=== PATIENT | female | born 1950 | race Caucasian/White ===

== ENCOUNTER 2017-10-25 04:18 | Emergency (ER) | payer OTHER, SELFPAY ==
[2017-10-25 04:19] VITALS: BP 156/80; PULSE 79; RESP 18; TEMP 36.9; O2SAT 96; BMI 33.0
--- NOTE | 2017-10-25 04:33 | CT_ITS ---
STUDY: CT ABDOMEN AND PELVIS WITHOUT CONTRAST REASON FOR EXAM: Female, 67 years old. Right flank pain RADIATION DOSAGE (If Supplied By Facility): CTDIvol = ( 11.98 ) mGy, DLP = ( 583.82 ) mGycm TECHNIQUE: Transaxial images were obtained from the dome of the diaphragm to the symphysis pubis without oral contrast, and without intravenous contrast. Sagittal and coronal images were reconstructed. Individualized dose optimization techniques were used for this CT. COMPARISON: None. FINDINGS: The lung bases are clear. The liver is normal. No dilated intrahepatic biliary radicles. There is a 9.7 mm gallstone but no pericholecystic fluid collection. The spleen is normal. The pancreas is normal. Both adrenals are normal. A 4.4 mm left calyceal calculus. No hydronephrosis on either side The stomach is normal. There is no bowel distention, acute appendicitis or diverticulitis. No constricting lesions are seen in large bowel. The abdominal wall is intact with no hernias. There is no ascites or any free intraperitoneal air. No indication of epiploic appendagitis The vascular structures in the retroperitoneum are normal. There is no retrocrural, retroperitoneal or mesenteric adenopathy. Degenerative changes at L4-5 and L5-S1 The urinary bladder is normal.--The uterus is not seen. There is no inguinal or pelvic adenopathy. There is no inguinal hernia. . CT/Abdomen/Pelvis without Cont IMPRESSION: A 9.7 mm gallstone. A 4.4 mm left calyceal calculus. No hydronephrosis on either side. Degenerative changes at L4-5 and L5-S1 Electronically Signed: Romaine Leary, at 6:00 EDT Tel , Service support ,
[2017-10-25 04:43] LABS: Bacteria 0 SEEN /hpf (None Seen); Mucous, Urine 0 SEEN /hpf (<or=2+); Squamous Epithelial Cells - UA 0 SEEN /hpf (5-10); White Blood Cells 0 SEEN /hpf (0-5)
[2017-10-25] MEDS: 0.9% Normal Saline 1,000 ML 1000 ML IV (04:43)
[2017-10-25] MEDS: Ketorolac 30 MG/ML Syringe IV (04:43)
[2017-10-25 04:53] LABS: Absolute Neutrophil Count 2.4 X10^3/uL (2.0-7.7); Basophil# 0.05 X10^3/uL; Eosinophil# 0.24 X10^3/uL; Eosinophils% 4.6 % (0-5); Hematocrit 38.6 % (37-47); Hemoglobin 13.2 g/dl (12.0-15.0); Lymphocyte % 34.7 % (19-41); Mean Corp Hgb Conc 34.2 g/gl (32-36); Mean Corpuscular Hgb 30.2 pg (27.0-32.0); Mean Corpuscular Volume 88.3 fL (81-99); Mean Platelet Vol. 9.2 fl (6.2-12.0); Monocyte# 0.69 X10^3/uL; Monocyte% 13.3 % (0-10); Neutrophil % 46.2 % (47-70); Platelet Count 261 K/mm3 (150-450); RBC Distribution Width CV 12.5 % (11.6-14.6); RBC Distribution Width SD 39.5 fl (35.1-43.9); Red Blood Count 4.37 M/mm3 (4.2-5.4); White Blood Count 5.2 K/mm3 (4.4-11.0)
[2017-10-25 04:55] LABS: POSITIVE COUNT NO; POSITIVE DIFFERENTIAL NO; POSITIVE MORPHOLOGY NO
[2017-10-25 04:56] LABS: Color, Urine Yellow (Yellow); Glucose, Dipstick Normal (Normal); Ketone-Dipstick Negative (Negative); Leukocyte Esterase-Dipstick Negative /ul (Negative); Nitrite-Dipstick Negative (Negative); Occult Blood-Urine 50 /ul (Negative); Protein-Dipstick Negative (Negative); Specific Gravity, Urine 1.015 (1.002-1.030); Urine Bilirubin Dipstick Negative (Negative); Urine Clarity Clear (Clear); Urine Urobilinogen Normal (Normal)
[2017-10-25 05:06] LABS: Red Blood Cells-Urine 0-5 SEEN /hpf (0-5)
[2017-10-25 05:07] LABS: BUN 12 mg/dL (7-18); BUN/Creat Ratio 17.7 RATIO (10-20); Calcium,Total 9.2 mg/dL (8.5-10.1); Chloride 106 mmol/L (98-107); Creatinine, Serum 0.68 mg/dL (0.55-1.02); EST Glomerular Filtration Rate 92 mL/min (>60); Est Glom Filt Rate - Afr Amer 112 mL/min (>60); Estimated Creatinine Clearance 65.23 ml/min; Glucose 107 mg/dL (74-106); Potassium 3.8 mmol/L (3.5-5.1); Sodium Level 143 mmol/L (136-145)
[2017-10-25 05:08] LABS: Anion Gap 7 (5-15)
--- NOTE | 2017-10-25 06:18 | ED.VISSUMM ---
- ER Visit Summary Date of Service: 10/25/17 Chief Complaint: Flank pain History of Present Illness: The patient is a 67 F who presents with left flank pain. It began about 1 week ago. It is intermittent and waxes and wanes. She currently complains of 7 out of 10 pain. She complains of nausea. She did have some diarrhea yesterday but none today. No vomiting. No fevers. She does have a history of kidney stones 20 years ago. She is concerned she may have another kidney stone. Physical Examination: Afebrile vitals are normal Moist mucous membranes Heart regular rate and rhythm Lungs are clear Abdomen soft nontender nondistended Patient does have some left CVA tenderness Alert Test Results: CBC BMP unremarkable. Urinalysis shows [address] of the flank shows a left calyceal calculus and cholelithiasis no ureterolithiasis. Emergency Department Course and Treatment: Patient was treated with Toradol here. She is resting comfortably on reevaluation. I would not expect the calyceal calculus to be causing her pain. She has no ureterolithiasis. Patient will be referred to urology and also advised to follow-up with her primary care physician. Treatment Plan: [] Disposition: Discharge Impression: Left flank pain Nephrolithiasis This note was generated with [employer] dictation software. It may contain incorrect words, spelling, and punctuation that were not noted in review of the chart prior to signing ED Disposition - Plan for ED Patient: Chief Complaint: Flank Pain Referrals: Jossy Kitchen MD [Primary Care Provider] -
--- NOTE | 2017-10-25 06:22 | ED.DEP ---
ED Disposition - Plan for ED Patient: Chief Complaint: Flank Pain Instructions: ED Flank Pain Uncertain Cause, ED Stone Kidney Undescended No Sx Referrals: Jossy Kitchen MD [Primary Care Provider] - Bright Gongora MD [STAFF PHYSICIAN] -
[2017-10-25 06:27] VITALS: BP 123/75; PULSE 68; RESP 16; O2SAT 96; O2SAT 98
== END 2017-10-25 06:28 | disposition home or self-care (01) ==
LOC: ED 04:49
PROVIDERS: Emergency Provider Emergency Medicine; Family Provider Internal Medicine; PCP Internal Medicine
DX: R10.9 Unspecified abdominal pain (principal); N20.0 Calculus of kidney; K80.20 Calculus of gallbladder without cholecystitis without obstruction; Z79.82 Long term (current) use of aspirin; Z87.442 Personal history of urinary calculi
CPT/HCPCS: 74176; 80048; 81001; 85025; 96361; 96374; 99285; J7030; A4216; J2405

== ENCOUNTER → 2020-12-08 16:10 | Outpatient (CLI) | payer MEDICARE, OTHER, SELFPAY ==
--- NOTE | 2020-12-08 16:20 | MRI_ITS ---
STUDY: MRI BRAIN WITH AND WITHOUT CONTRAST REASON FOR EXAM: Female, 70 years old. VERTIGO TECHNIQUE: Standardized multiplanar fat and water weighted pulse sequences were obtained. IV dotarem 15ml was administered for the contrast portion of the examination. COMPARISON: None. FINDINGS: Normal size of the ventricles and extra-axial spaces for the patient''s age. Minor periventricular white matter ischemic change without mass effect or restricted diffusion. Normal bilateral basal ganglia. Normal thalami. There is no extra-axial fluid accumulation. Normal flow voids within the major intracranial circulation suggesting patency by spin echo criteria. Normal venous enhancement. There is no enhancing intra-axial or extra-axial abnormality. Normal sella turcica, pituitary gland, infundibular stalk, optic chiasm and hypothalamus. Normal tectal plate and pineal gland. Normal midbrain, paul and medulla. Normal cerebellum. Normal basal cisterns. Normal bilateral temporal bones. Normal bilateral internal auditory canals. No demonstrated orbital abnormality, within the constraints of a routine brain study. Normal visualized paranasal sinuses. Normal calvarium and skull base. Normal visualized soft tissue structures. Normal visualized upper cervical spine. MRI/Brain W/WO Contrast IMPRESSION: Minor periventricular white matter ischemic change without evidence for acute infarct. No evidence for acoustic or vestibular schwannoma. Electronically Signed: Korey Morales MD at 21:03 EDT , Service support ,
[2020-12-08 16:40] LABS: CREATININE FINGERSTICK 0.6 mg/dL (0.55-1.02); EGFR FINGERSTICK > 60.0000 mL/min (>60)
== END ==
PROVIDERS: PCP Internal Medicine; Referring Provider Otolaryngology Otolaryngology/Facial Plastic Surgery; Visit Provider Otolaryngology Otolaryngology/Facial Plastic Surgery
DX: R42 Dizziness and giddiness (principal)
CPT/HCPCS: 70553; A9581

== ENCOUNTER 2023-08-02 17:30 | Outpatient (RCR) | payer SELFPAY | END 2023-08-07 23:59 | LOC: NS 17:30 | PROVIDERS: PCP Internal Medicine | DX: Z71.3 Dietary counseling and surveillance (principal) ==

== ENCOUNTER 2023-11-12 12:09 | Outpatient (RCR) | payer SELFPAY | END 2023-12-08 23:59 | LOC: NS 12:09 | PROVIDERS: PCP Internal Medicine | DX: Z71.3 Dietary counseling and surveillance (principal) ==

== ENCOUNTER 2024-02-11 15:57 | Outpatient (RCR) | payer SELFPAY | END 2024-03-08 23:59 | LOC: NS 15:57 | PROVIDERS: PCP Internal Medicine | DX: Z71.3 Dietary counseling and surveillance (principal) ==